=== PATIENT | male | born 1955 | race Caucasian/White ===

== ENCOUNTER 2016-10-06 19:45 | Emergency (ER) | payer BC ==
--- NOTE | 2016-10-06 19:57 | EDM.PDOC ---
ED HPI GENERAL MEDICAL PROBLEM - General Chief Complaint: Lower Extremity Injury/Pain Stated Complaint: PAIN IN RIGHT LEG Time Seen by Provider: 10/06/16 19:56 Source of Information: Reports: Patient - History of Present Illness INITIAL COMMENTS - FREE TEXT/NARRATIVE: HISTORY AND PHYSICAL: History of present illness: Patient has had swelling edema and redness of the right lower extremity for 3 weeks does have a small lesion midshaft anterior that he states began as a bug bite that has had some drainage associated with this he is Homans positive No fever nausea vomiting chills sweats no chest pain shortness breath headache dizziness palpitation about a urine symptoms Review of systems: As per history of present illness and below otherwise all systems reviewed and negative. Past medical history: As per history of present illness and as reviewed below otherwise noncontributory. Surgical history: As per history of present illness and as reviewed below otherwise noncontributory. Social history: No reported history of drug or alcohol abuse. Family history: As per history of present illness and as reviewed below otherwise noncontributory. Physical exam: HEENT: Atraumatic, normocephalic, pupils reactive, negative for conjunctival pallor or scleral icterus, mucous membranes moist, throat clear, neck supple, nontender, trachea midline. Lungs: Clear to auscultation, breath sounds equal bilaterally, chest nontender. Heart: S1S2, regular, negative for clicks, rubs, or JVD. Abdomen: Soft, nondistended, nontender. Negative for masses or hepatosplenomegaly. Negative for costovertebral tenderness. Pelvis: Stable nontender. Genitourinary: Deferred. Rectal: Deferred. Extremities: Atraumatic, negative for cords or calf pain. Neurovascular unremarkable. Right lower extremity 3+ edema some redness open lesion anterior midshaft shaft with some drainage nontender neurovascularly intact Neuro: Awake, alert, oriented. Cranial nerves II through XII unremarkable. Cerebellum unremarkable. Motor and sensory unremarkable throughout. Exam nonfocal. Diagnostics: []Lab as below Ultrasound rule out DVT Therapeutics: []Bactrim double strength by mouth twice a day #20 no refill Impression: []Cellulitis DVT disproven Chronic history of baseline Definitive disposition and diagnosis as appropriate pending reevaluation and review of above. - Related Data Allergies Allergy/AdvReac Type Severity Reaction Status Date / Time Penicillins Allergy Cannot Verified 10/06/16 19:56 Remember Home Meds: Home Meds . [No Known Home Meds] 10/06/16 [History] Review of Systems - Review of Systems Review Of Systems: ROS reveals no pertinent complaints other than HPI. ED EXAM, GENERAL - Physical Exam Exam: See Below Course - Vital Signs Last Recorded V/S: Last Vital Signs Temp 37.0 C 10/06/16 19:57 Pulse 82 10/06/16 19:57 Resp 18 10/06/16 19:57 BP 169/86 H 10/06/16 19:57 Pulse Ox 98 10/06/16 19:57 - Orders/Labs/Meds Orders: Active Orders 24 hr Category Date Time Status Venous Doppler Lwr Ext Rt [US] Stat Exams 10/06/16 19:55 Taken CULTURE WOUND [RM] Stat Lab 10/06/16 20:30 Received Labs: Laboratory Tests 10/06/16 10/06/16 10/06/16 Range/Units 20:13 20:13 20:13 WBC 3.52 L (4.0-11.0) K/uL RBC 3.84 L (4.50-5.90) M/uL Hgb 13.8 (13.0-17.0) g/dL Hct 40.9 (38.0-50.0) % MCV 106.5 H (80.0-98.0) fL MCH 35.9 H (27.0-32.0) pg MCHC 33.7 (31.0-37.0) g/dL RDW Std Deviation 53.2 (28.0-62.0) fl RDW Coeff of Asaf 14 (11.0-15.0) % Plt Count 52 L (150-400) K/uL MPV 11.60 (7.40-12.00) fL Neut % (Auto) 56.5 (48.0-80.0) % Lymph % (Auto) 30.4 (16.0-40.0) % [place] % (Auto) 10.5 (0.0-15.0) % Eos % (Auto) 2.3 (0.0-7.0) % Baso % (Auto) 0.3 (0.0-1.5) % Neut # (Auto) 2.0 (1.4-5.7) K/uL Lymph # (Auto) 1.1 (0.6-2.4) K/uL [place] # (Auto) 0.4 (0.0-0.8) K/uL Eos # (Auto) 0.1 (0.0-0.7) K/uL Baso # (Auto) 0.0 (0.0-0.1) K/uL Nucleated RBC % 0.0 /100WBC Nucleated RBCs # 0 K/uL INR 1.17 H (0.86-1.11) APTT (18.6-31.3) SEC Sodium 138 (136-146) mmol/L Potassium 4.3 (3.5-5.1) mmol/L Chloride 108 (98-110) mmol/L Carbon Dioxide 24 (21-31) mmol/L BUN 13 (6.0-23.0) mg/dL Creatinine 0.7 (0.6-1.5) mg/dL Est Cr Clr Drug Dosing TNP Estimated GFR (MDRD) > 60.0 ml/min Glucose 95 (60-110) mg/dL Calcium 8.9 (8.8-10.8) mg/dL Total Bilirubin 1.2 (0.1-1.5) mg/dL AST 62 H (5-40) IU/L ALT 60 H (8-54) IU/L Alkaline Phosphatase 152 H (40-150) Total Protein 7.6 (6.0-8.0) g/dL Albumin 3.3 L (3.4-4.8) g/dL Globulin 4.3 H (2.0-3.5) g/dL Albumin/Globulin Ratio 0.8 L (1.3-2.8) Urine Color Urine Appearance Urine pH (5.0-8.0) Ur Specific [place] (1.001-1.035) Urine Protein (NEGATIVE) mg/dL Urine Glucose (UA) (NEGATIVE) mg/dL Urine Ketones (NEGATIVE) mg/dL Urine Occult Blood (NEGATIVE) Urine Nitrite (NEGATIVE) Urine Bilirubin (NEGATIVE) Urine Urobilinogen (<2.0) EU/dL Ur Leukocyte Esterase (NEGATIVE) Urine RBC (0-2/HPF) Urine WBC (0-5/HPF) Ur Epithelial Cells (NONE-FEW) Urine Bacteria (NEGATIVE) 10/06/16 10/06/16 Range/Units 20:13 20:20 WBC (4.0-11.0) K/uL RBC (4.50-5.90) M/uL Hgb (13.0-17.0) g/dL Hct (38.0-50.0) % MCV (80.0-98.0) fL MCH (27.0-32.0) pg MCHC (31.0-37.0) g/dL RDW Std Deviation (28.0-62.0) fl RDW Coeff of Asaf (11.0-15.0) % Plt Count (150-400) K/uL MPV (7.40-12.00) fL Neut % (Auto) (48.0-80.0) % Lymph % (Auto) (16.0-40.0) % [place] % (Auto) (0.0-15.0) % Eos % (Auto) (0.0-7.0) % Baso % (Auto) (0.0-1.5) % Neut # (Auto) (1.4-5.7) K/uL Lymph # (Auto) (0.6-2.4) K/uL [place] # (Auto) (0.0-0.8) K/uL Eos # (Auto) (0.0-0.7) K/uL Baso # (Auto) (0.0-0.1) K/uL Nucleated RBC % /100WBC Nucleated RBCs # K/uL INR (0.86-1.11) APTT 27.7 (18.6-31.3) SEC Sodium (136-146) mmol/L Potassium (3.5-5.1) mmol/L Chloride (98-110) mmol/L Carbon Dioxide (21-31) mmol/L BUN (6.0-23.0) mg/dL Creatinine (0.6-1.5) mg/dL Est Cr Clr Drug Dosing Estimated GFR (MDRD) ml/min Glucose (60-110) mg/dL Calcium (8.8-10.8) mg/dL Total Bilirubin (0.1-1.5) mg/dL AST (5-40) IU/L ALT (8-54) IU/L Alkaline Phosphatase (40-150) Total Protein (6.0-8.0) g/dL Albumin (3.4-4.8) g/dL Globulin (2.0-3.5) g/dL Albumin/Globulin Ratio (1.3-2.8) Urine Color YELLOW Urine Appearance CLEAR Urine pH 6.5 (5.0-8.0) Ur Specific [place] 1.015 (1.001-1.035) Urine Protein NEGATIVE (NEGATIVE) mg/dL Urine Glucose (UA) NEGATIVE (NEGATIVE) mg/dL Urine Ketones NEGATIVE (NEGATIVE) mg/dL Urine Occult Blood TRACE-INTACT (NEGATIVE) Urine Nitrite NEGATIVE (NEGATIVE) Urine Bilirubin NEGATIVE (NEGATIVE) Urine Urobilinogen 1.0 (<2.0) EU/dL Ur Leukocyte Esterase NEGATIVE (NEGATIVE) Urine RBC 0-3 (0-2/HPF) Urine WBC 0-1 (0-5/HPF) Ur Epithelial Cells RARE (NONE-FEW) Urine Bacteria RARE (NEGATIVE) Departure - Departure Time of Disposition: 21:40 Disposition: Home, Self-Care 01 Condition: Good Clinical Impression: Cellulitis - Discharge Information Forms: ED Department Discharge Additional Instructions: Medication as prescribed Return if symptoms persist or worsen Follow-up with primary care in 2 weeks sooner as needed Return if fever nausea vomiting chills sweats despite antibiotics [facility] - Primary Care [address] [place] [address] The following information is given to patients seen in the emergency department who are being discharged to home. This information is to outline your options for follow-up care. We provide all patients seen in our emergency department with a follow-up referral. The need for follow-up, as well as the timing and circumstances, are variable depending upon the specifics of your emergency department visit. If you don't have a primary care physician on staff, we will provide you with a referral. We always advise you to contact your personal physician following an emergency department visit to inform them of the circumstance of the visit and for follow-up with them and/or the need for any referrals to a consulting specialist. The emergency department will also refer you to a specialist when appropriate. This referral assures that you have the opportunity for follow-up care with a specialist. All of these measure are taken in an effort to provide you with optimal care, which includes your follow-up. Under all circumstances we always encourage you to contact your private physician who remains a resource for coordinating your care. When calling for follow-up care, please make the office aware that this follow-up is from your recent emergency room visit. If for any reason you are refused follow-up, please contact the [facility] emergency department at and asked to speak to the emergency department charge nurse. - My Orders Last 24 Hours: My Active Orders 10/06/16 19:55 Venous Doppler Lwr Ext Rt [US] Stat 10/06/16 20:30 CULTURE WOUND [RM] Stat - Assessment/Plan Last 24 Hours: My Active Orders 10/06/16 19:55 Venous Doppler Lwr Ext Rt [US] Stat 10/06/16 20:30 CULTURE WOUND [RM] Stat
[2016-10-06 20:42] LABS: CHLORIDE,CL 108 mmol/L (98-110); SODIUM,NA 138 mmol/L (136-146)
[2016-10-06] MEDS ORDERED: Sulfamethoxazole/Trimethoprim 800-160 MG Tab PO ONE (21:43)
[2016-10-07 04:31] VITALS: BP 147/77
--- NOTE | 2016-10-07 16:22 | US ---
EXAM DATE: 10/06/16 PATIENT'S AGE: 61 Patient: JERRELL RANKIN Facility: [place], [place] Site . Site : [id number] Study: US Extremity Right [id number]/[id number] 9:30:33 PM Ordering Physician: Richie Molina Final Report: INDICATION: lower leg redness, pain and swelling x 3wks TECHNIQUE: Ultrasound venous duplex lower right extremity. Compression venous exam was performed using delgadillo-scale, color Doppler, and spectral Doppler imaging. COMPARISON: None. FINDINGS: Sonographic imaging demonstrates the right common femoral, deep femoral, superficial femoral, popliteal, posterior tibial and greater saphenous and the contralateral left common femoral veins to be fully compressible with normal color Doppler blood flow. IMPRESSION: Normal right lower extremity venous ultrasound, no sign of deep venous thrombosis. Dictated by: Dominick Lewis MD @ 10/06/2016 21:37:23 (Electronic Signature) Report Signed by Proxy. CHELY
== END 2016-10-06 22:07 | disposition home or self-care (01) ==
LOC: MW.ED 19:45
DX: L03.115 Cellulitis of right lower limb (principal); Z88.0 Allergy status to penicillin
CPT/HCPCS: 36415; 80053; 81001; 85025; 85610; 85730; 87070; 93971; 99284; A9270; 87077; 87186; 99282

== ENCOUNTER 2018-06-26 18:10 | Emergency (ER) | payer BC ==
[2018-06-26] MEDS ORDERED: Sodium Chloride 0.9% 2.5 ML Syringe FLUSH PRN (18:26)
[2018-06-26] MEDS ORDERED: Sodium Chloride 0.9% 10 ML Syringe FLUSH PRN (18:26)
[2018-06-26] MEDS ORDERED: Sodium Chloride 0.9% 1,000 ML IV ONE (18:26)
[2018-06-26] MEDS ORDERED: Ondansetron 4 MG/2 ML SDV IVPUSH ONE (18:26)
--- NOTE | 2018-06-26 18:36 | EDM.PDOC ---
<Gavi Tan - Last Filed: 06/26/18 18:50> ED HPI GENERAL MEDICAL PROBLEM - General Chief Complaint: Gastrointestinal Problem Stated Complaint: VOMITING X 2 DAYS, WEAK,LETHARGIC Time Seen by Provider: 06/26/18 18:25 Source of Information: Reports: Patient History Limitations: Reports: No Limitations - History of Present Illness INITIAL COMMENTS - FREE TEXT/NARRATIVE: History of present illness: []Patient started feeling ill 2 days ago with one episode of vomiting and has been continuing to have dry heaves. He is unable to tolerate fluids due to nausea and is now complaining of diffuse abdominal pain. He is not passing flatus and has not had a bowel movement since the symptoms began. Patient has not had any previous abdominal surgeries and has a history of abnormal liver function tests. Review of systems: As per history of present illness and below otherwise all systems reviewed and negative. Past medical history: As per history of present illness and as reviewed below otherwise noncontributory. Surgical history: As per history of present illness and as reviewed below otherwise noncontributory. Social history: No reported history of drug or alcohol abuse. Family history: As per history of present illness and as reviewed below otherwise noncontributory. Physical exam: General: Well developed, well nourished in NAD HEENT: Atraumatic, normocephalic, pupils reactive, negative for conjunctival pallor or scleral icterus, mucous membranes moist, throat clear, neck supple, nontender, trachea midline. Lungs: Clear to auscultation, breath sounds equal bilaterally, chest nontender. Heart: S1S2, regular, negative for clicks, rubs, or JVD. Abdomen: Tympanitic bowel sounds, Soft, distended, mild tenderness without rebound or guarding. Negative for masses or hepatosplenomegaly. Negative for costovertebral tenderness. Pelvis: Stable nontender. Genitourinary: Deferred. Rectal: Deferred. Extremities: Atraumatic, negative for cords or calf pain. Neurovascular unremarkable. Neuro: Awake, alert, oriented. Cranial nerves II through XII unremarkable. Cerebellum unremarkable. Motor and sensory unremarkable throughout. Exam nonfocal. Skin:warm and dry Diagnostics: CBC, chemistry, lipase, lactic acid, UA, CT abdomen and pelvis Therapeutics: IV hydration, Zofran ED Course: Impression: Prescriptions: Plan: Definitive disposition and diagnosis as appropriate pending reevaluation and review of above. - Related Data Allergies Allergy/AdvReac Type Severity Reaction Status Date / Time Penicillins Allergy Cannot Verified 06/26/18 18:21 Remember Home Meds: Home Meds . [No Known Home Meds] 10/06/16 [History] Past Medical History - Past Health History Medical/Surgical History: Denies Medical/Surgical History - Infectious Disease History Infectious Disease History: Reports: Chicken Pox, Measles, Mumps - Past Surgical History HEENT Surgical History: Reports: Naso-Sinus Surgery, Other (See Below) Social & Family History - Family History Family Medical History: Noncontributory - Tobacco Use Smoking Status *Q: Never Smoker - Caffeine Use Caffeine Use: Reports: Coffee - Recreational Drug Use Recreational Drug Use: No ED ROS GENERAL - Review of Systems Review Of Systems: ROS reveals no pertinent complaints other than HPI. ED EXAM, GI/ABD - Physical Exam Exam: See Below (The history of present illness) Course - Vital Signs Last Recorded V/S: Last Vital Signs Temp 36.7 C 06/26/18 18:21 Pulse 74 06/26/18 19:59 Resp 18 06/26/18 19:59 BP 116/54 L 06/26/18 19:59 Pulse Ox 94 L 06/26/18 19:59 - Orders/Labs/Meds Orders: Active Orders 24 hr Category Date Time Status Notify Provider Consults [RC] ASDIRECTED Care 06/26/18 20:34 Active Consult to Physician [CONS] Stat Cons 06/26/18 20:34 Active CULTURE URINE [RM] Stat Lab 06/26/18 19:20 Ordered Ertapenem [INVanz] 1 gm Med 06/26/18 21:07 Ordered Sodium Chloride 0.9% [Normal Saline] 50 ml IV ONETIME Lactated Ringers [Ringers, Lactated] 1,000 ml Med 06/26/18 20:45 Active IV ASDIRECTED Sodium Chloride 0.9% [Saline Flush] Med 06/26/18 18:26 Active 10 ml FLUSH ASDIRECTED PRN Sodium Chloride 0.9% [Saline Flush] Med 06/26/18 18:26 Active 2.5 ml FLUSH ASDIRECTED PRN Nasogastric Orogastric Tube Insertion [OM.PC] Stat Oth 06/26/18 21:06 Ordered Saline Lock Insert [OM.PC] Stat Oth 06/26/18 18:26 Ordered Medication Orders Lactated Ringer's (Ringers, Lactated) 1,000 mls @ 150 mls/hr IV ASDIRECTED HERI Last Admin: 06/26/18 20:45 Dose: 150 mls/hr Sodium Chloride (Saline Flush) 10 ml FLUSH ASDIRECTED PRN PRN Reason: Keep Vein Open Last Admin: 06/26/18 18:32 Dose: 10 ml Sodium Chloride (Saline Flush) 2.5 ml FLUSH ASDIRECTED PRN PRN Reason: Keep Vein Open Last Admin: 06/26/18 18:31 Dose: 2.5 ml Labs: Laboratory Tests 06/26/18 06/26/18 06/26/18 Range/Units 18:27 18:36 18:36 WBC 7.55 (4.0-11.0) K/uL RBC 3.77 L (4.50-5.90) M/uL Hgb 14.0 (13.0-17.0) g/dL Hct 41.6 (38.0-50.0) % MCV 110.3 H (80.0-98.0) fL MCH 37.1 H (27.0-32.0) pg MCHC 33.7 (31.0-37.0) g/dL RDW Std Deviation 62.4 H (28.0-62.0) fl RDW Coeff of Asaf 16 H (11.0-15.0) % Plt Count 65 L (150-400) K/uL MPV 11.70 (7.40-12.00) fL Neut % (Auto) 75.3 (48.0-80.0) % Lymph % (Auto) 13.4 L (16.0-40.0) % [place] % (Auto) 10.5 (0.0-15.0) % Eos % (Auto) 0.7 (0.0-7.0) % Baso % (Auto) 0.1 (0.0-1.5) % Neut # (Auto) 5.7 (1.4-5.7) K/uL Lymph # (Auto) 1.0 (0.6-2.4) K/uL [place] # (Auto) 0.8 (0.0-0.8) K/uL Eos # (Auto) 0.1 (0.0-0.7) K/uL Baso # (Auto) 0.0 (0.0-0.1) K/uL Nucleated RBC % 0.0 /100WBC Nucleated RBCs # 0 K/uL Lactate 1.9 (0.20-2.00) mmol/L Sodium (136-148) mmol/L Potassium (3.5-5.1) mmol/L Chloride (98-107) mmol/L Carbon Dioxide (21.0-32.0) mmol/L BUN (7.0-18.0) mg/dL Creatinine (0.8-1.3) mg/dL Est Cr Clr Drug Dosing mL/min Estimated GFR (MDRD) ml/min Glucose (74-106) mg/dL Calcium (8.5-10.1) mg/dL Total Bilirubin (0.2-1.0) mg/dL AST (15-37) IU/L ALT (14-63) IU/L Alkaline Phosphatase (46-116) U/L Total Protein (6.4-8.2) g/dL Albumin (3.4-5.0) g/dL Globulin (2.6-4.0) g/dL Albumin/Globulin Ratio (0.9-1.6) Lipase (73-393) U/L Urine Color ORANGE Urine Appearance HAZY Urine pH 5.5 (5.0-8.0) Ur Specific [place] 1.025 (1.001-1.035) Urine Protein TRACE H (NEGATIVE) mg/dL Urine Glucose (UA) NEGATIVE (NEGATIVE) mg/dL Urine Ketones NEGATIVE (NEGATIVE) mg/dL Urine Occult Blood MODERATE H (NEGATIVE) Urine Nitrite POSITIVE H (NEGATIVE) Urine Bilirubin MODERATE H (NEGATIVE) Urine Ictotest POSITIVE Urine Urobilinogen 2.0 H (<2.0) EU/dL Ur Leukocyte Esterase NEGATIVE (NEGATIVE) Urine RBC 0-3 (0-2/HPF) Urine WBC 0-4 (0-5/HPF) Ur Epithelial Cells OCCASIONAL (NONE-FEW) Amorphous Sediment MODERATE (NEGATIVE) Urine Bacteria FEW (NEGATIVE) Urine Mucus LIGHT (NONE-MOD) 06/26/18 06/26/18 Range/Units 18:36 20:58 WBC (4.0-11.0) K/uL RBC (4.50-5.90) M/uL Hgb (13.0-17.0) g/dL Hct (38.0-50.0) % MCV (80.0-98.0) fL MCH (27.0-32.0) pg MCHC (31.0-37.0) g/dL RDW Std Deviation (28.0-62.0) fl RDW Coeff of Asaf (11.0-15.0) % Plt Count (150-400) K/uL MPV (7.40-12.00) fL Neut % (Auto) (48.0-80.0) % Lymph % (Auto) (16.0-40.0) % [place] % (Auto) (0.0-15.0) % Eos % (Auto) (0.0-7.0) % Baso % (Auto) (0.0-1.5) % Neut # (Auto) (1.4-5.7) K/uL Lymph # (Auto) (0.6-2.4) K/uL [place] # (Auto) (0.0-0.8) K/uL Eos # (Auto) (0.0-0.7) K/uL Baso # (Auto) (0.0-0.1) K/uL Nucleated RBC % /100WBC Nucleated RBCs # K/uL Lactate 1.6 (0.20-2.00) mmol/L Sodium 134 L (136-148) mmol/L Potassium 3.8 (3.5-5.1) mmol/L Chloride 100 (98-107) mmol/L Carbon Dioxide 24.7 (21.0-32.0) mmol/L BUN 15 (7.0-18.0) mg/dL Creatinine 0.8 (0.8-1.3) mg/dL Est Cr Clr Drug Dosing 91.44 mL/min Estimated GFR (MDRD) > 60.0 ml/min Glucose 121 H (74-106) mg/dL Calcium 8.9 (8.5-10.1) mg/dL Total Bilirubin 2.9 H (0.2-1.0) mg/dL AST 63 H (15-37) IU/L ALT 48 (14-63) IU/L Alkaline Phosphatase 116 (46-116) U/L Total Protein 9.0 H (6.4-8.2) g/dL Albumin 2.6 L (3.4-5.0) g/dL Globulin 6.4 H (2.6-4.0) g/dL Albumin/Globulin Ratio 0.4 L (0.9-1.6) Lipase 116 (73-393) U/L Urine Color Urine Appearance Urine pH (5.0-8.0) Ur Specific [place] (1.001-1.035) Urine Protein (NEGATIVE) mg/dL Urine Glucose (UA) (NEGATIVE) mg/dL Urine Ketones (NEGATIVE) mg/dL Urine Occult Blood (NEGATIVE) Urine Nitrite (NEGATIVE) Urine Bilirubin (NEGATIVE) Urine Ictotest Urine Urobilinogen (<2.0) EU/dL Ur Leukocyte Esterase (NEGATIVE) Urine RBC (0-2/HPF) Urine WBC (0-5/HPF) Ur Epithelial Cells (NONE-FEW) Amorphous Sediment (NEGATIVE) Urine Bacteria (NEGATIVE) Urine Mucus (NONE-MOD) Meds: Medications Generic Name Dose Route Start Last Admin Trade Name Freq PRN Reason Stop Dose Admin Lactated Ringer's 1,000 mls @ 150 mls/hr 06/26/18 20:45 06/26/18 20:45 Ringers, Lactated IV 150 mls/hr ASDIRECTED HERI Administration Sodium Chloride 10 ml 06/26/18 18:26 06/26/18 18:32 Saline Flush FLUSH 10 ml ASDIRECTED PRN Administration Keep Vein Open Sodium Chloride 2.5 ml 06/26/18 18:26 06/26/18 18:31 Saline Flush FLUSH 2.5 ml ASDIRECTED PRN Administration Keep Vein Open Discontinued Medications Generic Name Dose Route Start Last Admin Trade Name Freq PRN Reason Stop Dose Admin Sodium Chloride 1,000 mls @ 999 mls/hr 06/26/18 18:26 06/26/18 18:31 Normal Saline IV 06/26/18 19:26 999 mls/hr .Bolus ONE Administration Iopamidol 100 ml 06/26/18 19:30 06/26/18 19:31 Isovue Multipack-370 (76%) IVPUSH 06/26/18 19:31 100 ml ONETIME ONE Administration Morphine Sulfate 4 mg 06/26/18 19:57 06/26/18 20:14 Morphine IVPUSH 06/26/18 19:58 4 mg ONETIME ONE Administration Morphine Sulfate Confirm 06/26/18 20:17 Morphine Administered 06/26/18 20:18 Dose 2 mg .ROUTE .STK-MED ONE Ondansetron HCl 4 mg 06/26/18 18:26 06/26/18 18:31 Zofran IVPUSH 06/26/18 18:27 4 mg ONETIME ONE Administration Departure - Departure Disposition: DC/Tfer to [facility] 02 Clinical Impression: Incarcerated umbilical hernia - Discharge Information Referrals: Fran Hampton MD [Primary Care Provider] - Forms: ED Department Discharge - My Orders Last 24 Hours: My Active Orders 06/26/18 19:20 CULTURE URINE [RM] Stat 06/26/18 20:34 Notify Provider Consults [RC] ASDIRECTED Consult to Physician [CONS] Stat 06/26/18 20:45 Lactated Ringers [Ringers, Lactated] 1,000 ml IV ASDIRECTED 06/26/18 21:06 Nasogastric Orogastric Tube Insertion [OM.PC] Stat 06/26/18 21:07 Ertapenem [INVanz] 1 gm Sodium Chloride 0.9% [Normal Saline] 50 ml IV ONETIME - Assessment/Plan Last 24 Hours: My Active Orders 06/26/18 19:20 CULTURE URINE [RM] Stat 06/26/18 20:34 Notify Provider Consults [RC] ASDIRECTED Consult to Physician [CONS] Stat 06/26/18 20:45 Lactated Ringers [Ringers, Lactated] 1,000 ml IV ASDIRECTED 06/26/18 21:06 Nasogastric Orogastric Tube Insertion [OM.PC] Stat 06/26/18 21:07 Ertapenem [INVanz] 1 gm Sodium Chloride 0.9% [Normal Saline] 50 ml IV ONETIME <Skylar Edmond - Last Filed: 06/26/18 21:10> ED HPI GENERAL MEDICAL PROBLEM - History of Present Illness INITIAL COMMENTS - FREE TEXT/NARRATIVE: This is Dr. Edmond dictating addendum note as I assumed care of this case at 7 PM. The case was endorsed to me to follow up the lab tests and the CAT scan. The legs reveal a bilirubin of 2.9 and the patient does say that he has a history of liver problems that have never been formally diagnosed. He does have signs of an early UTI and urine culture was added area the patient was complaining of pain so I ordered some morphine. The CT scan results have just been obtained and reveal cirrhosis of the liver with portal venous hypertension some splenomegaly and some distal esophageal varices which would explain the patient's history of liver function test abnormalities that is not new or different today and his thrombocytopenia. The patient has on the CAT scan a 7.8 x 6.1 x 6.5 cm umbilical hernia which has entrapped small bowel within it which would explain the patient's tympany abdominal distention pain and vomiting. According to the radiologist who feels this is indicative of entrapped small bowel causing a small bowel obstruction. When I speak with the patient he says that he was aware that he had an umbilical hernia and sometimes it would pop out and he pushes it back in but since Friday this area has been more swollen and hard. On physical exam the patient does have diffuse abdominal distention and tympany on percussion and on palpation there is a tangerine sized umbilical hernia which is hard and tender and is not easily reducible. The patient is just receiving the morphine so I will reevaluate after that and I will discuss this case with Dr. Mendenhall. 2017: Case was discussed with Dr. Mendenhall who feels that this patient needs high level of care due to his thrombocytopenia and undiagnosed cirrhosis and/or limited resources here from a surgical perspective. I discussed this with the patient and family at bedside and the patient absolutely will not go to [facility] and prefers to go to [place]. 2026: I discussed this case with the surgeon on-call, Dr. Lopez, at [facility] in [place] and he feels that the patient should stay here and have his surgical procedure here. He would like to talk to Dr. Mendenhall. She was notified of this and she is coming in to examine the patient and do a formal consult. I the disposition of the patient. 2102: Dr. Mendenhall has seen and evaluated the patient and has discussed this case with Dr. Lopez, please see her consult for further information. The patient has been accepted for transfer and she feels that he can go by ground ambulance due to his exam and a negative lactate. An NG tube will be placed and a dose of Invanz will be given per the accepting physician's request. The patient is aware of this care plan. Impression: Incarcerated umbilical hernia with small bowel obstruction ED ROS GENERAL - Review of Systems Review Of Systems: ROS reveals no pertinent complaints other than HPI. Departure - Departure Time of Disposition: 21:08 Condition: Good
[2018-06-26 19:12] LABS: CHLORIDE,CL 100 mmol/L (98-107); SODIUM,NA 134 mmol/L (136-148)
[2018-06-26] MEDS ORDERED: Iopamidol 755 MG/ML 500 ML Multipack Bottle IVPUSH ONE (19:30)
[2018-06-26] MEDS ORDERED: Morphine 2 MG/ML Syringe IVPUSH ONE (19:57)
--- NOTE | 2018-06-26 20:06 | CT ---
INDICATION: Abdominal pain. CT ABDOMEN AND PELVIS WITH CONTRAST TECHNIQUE: Multidetector CT imaging was performed through the abdomen and pelvis following intravenous contrast administration using 100 mL Isovue 370. Coronal and sagittal reconstructions were generated. COMPARISON: None. FINDINGS: Lower chest: Lung bases are clear. Borderline cardiac enlargement is noted. Liver: Diffusely nodular liver contour consistent with cirrhosis. No focal liver lesion identified. Enlarged portosystemic vessels are present in the upper abdomen, including distal esophageal varices. Gallbladder and bile ducts: No gallbladder wall thickening or calcified gallstones. No biliary dilation identified. Pancreas: Unremarkable. Spleen: Moderate splenomegaly measuring 18 centimeters. Adrenals: No nodules or masses. Kidneys, ureters, and urinary bladder: No renal masses or hydronephrosis. Wall prominence of the urinary bladder due to nondistention. No bladder mass or definite pathologic wall thickening. Gastrointestinal tract and abdominal wall: 7.8 x 6.1 x 6.5 centimeter umbilical hernia containing fat and a segment of small bowel. Abnormal distention of the stomach and of the proximal and mid portion of the small bowel, with collapse of the distal small bowel, consistent with small bowel obstruction. Small bowel caliber transition at the aforementioned umbilical hernia. The appendix and colon appear normal. Vascular structures: Normal for age. Peritoneum: Small amount of free fluid in the pelvis. No free air identified. Lymph nodes: No pathologically enlarged nodes identified. Reproductive organs: No pelvic masses. Bones: Spinal degenerative changes. IMPRESSION: 1. Small bowel obstruction due to entrapment of a segment of small bowel in a 7.8 x 6.1 x 6.5 centimeter umbilical hernia. 2. Small amount of ascites. 3. Cirrhosis with portal venous hypertension, splenomegaly, and distal esophageal varices. FELICIA PÉREZ MD [employer] [facility] Dictated by Mike Pérez MD @ 06/26/2018 8:05:12 PM Dictated by: Mike Pérez MD @ 06/26/2018 20:05:36 (Electronically Signed)
[2018-06-26] MEDS ORDERED: Morphine 2 MG/ML Syringe ONE (20:17)
[2018-06-26] MEDS ORDERED: Lactated Ringers 1,000 ML IV SCH (20:45)
[2018-06-26] MEDS ORDERED: Ertapenem 1 GM in Sodium Chloride 0.9% 50 ML IV ONE (21:07)
--- NOTE | 2018-06-26 21:20 | PCM.CONS ---
H&P History of Present Illness - General Date of Service: 06/26/18 Source of Information: Patient History Limitations: Reports: No Limitations - History of Present Illness Initial Comments - Free Text/Narative: Patient is a 63 year old male with a history of "liver problems", FRANCO, and OA who presents with 2 days of abdominal pain. After the onset of this he became nauseated and started vomiting. He has been unable to keep anything down. He denies syncope. His abdominal pain was diffuse. He has an unbilical hernia that has been there for a long time. He does not feel it is bigger or more painful. - Related Data Allergies/Adverse Reactions: Allergies Allergy/AdvReac Type Severity Reaction Status Date / Time Penicillins Allergy Cannot Verified 06/26/18 18:21 Remember Home Medications: Home Meds . [No Known Home Meds] 10/06/16 [History] Past Medical History - Past Health History Medical/Surgical History: Denies Medical/Surgical History - Infectious Disease History Infectious Disease History: Reports: Chicken Pox, Measles, Mumps - Past Surgical History HEENT Surgical History: Reports: Naso-Sinus Surgery, Other (See Below) Social & Family History - Family History Family Medical History: Noncontributory - Tobacco Use Smoking Status *Q: Never Smoker - Caffeine Use Caffeine Use: Reports: Coffee - Recreational Drug Use Recreational Drug Use: No H&P Review of Systems - Review of Systems: Review Of Systems: ROS reveals no pertinent complaints other than HPI. Exam - Exam Exam: See Below - Vital Signs Vital Signs: Last Vital Signs Temp 36.7 C 06/26/18 18:21 Pulse 74 06/26/18 19:59 Resp 18 06/26/18 19:59 BP 116/54 L 06/26/18 19:59 Pulse Ox 94 L 06/26/18 19:59 Weight: 137.6 kg - Exam General: Alert, Oriented HEENT: Conjunctiva Clear, Mucosa Moist & [place], Posterior Pharynx Clear. No: Scleral Icterus Neck: Trachea Midline Lungs: Normal Respiratory Effort Cardiovascular: Regular Rate GI/Abdominal Exam: Distended, Other (Incarcerated umbilical hernia). No: Guarding, Rigid, Rebound, Tender Extremities: Pedal Edema Skin: Warm, Dry, Intact - Patient Data Lab Results Last 24 hrs: Laboratory Results - last 24 hr 06/26/18 06/26/18 06/26/18 Range/Units 18:27 18:36 18:36 WBC 7.55 (4.0-11.0) K/uL RBC 3.77 L (4.50-5.90) M/uL Hgb 14.0 (13.0-17.0) g/dL Hct 41.6 (38.0-50.0) % MCV 110.3 H (80.0-98.0) fL MCH 37.1 H (27.0-32.0) pg MCHC 33.7 (31.0-37.0) g/dL RDW Std Deviation 62.4 H (28.0-62.0) fl RDW Coeff of Asaf 16 H (11.0-15.0) % Plt Count 65 L (150-400) K/uL MPV 11.70 (7.40-12.00) fL Neut % (Auto) 75.3 (48.0-80.0) % Lymph % (Auto) 13.4 L (16.0-40.0) % [place] % (Auto) 10.5 (0.0-15.0) % Eos % (Auto) 0.7 (0.0-7.0) % Baso % (Auto) 0.1 (0.0-1.5) % Neut # (Auto) 5.7 (1.4-5.7) K/uL Lymph # (Auto) 1.0 (0.6-2.4) K/uL [place] # (Auto) 0.8 (0.0-0.8) K/uL Eos # (Auto) 0.1 (0.0-0.7) K/uL Baso # (Auto) 0.0 (0.0-0.1) K/uL Nucleated RBC % 0.0 /100WBC Nucleated RBCs # 0 K/uL Lactate 1.9 (0.20-2.00) mmol/L Sodium (136-148) mmol/L Potassium (3.5-5.1) mmol/L Chloride (98-107) mmol/L Carbon Dioxide (21.0-32.0) mmol/L BUN (7.0-18.0) mg/dL Creatinine (0.8-1.3) mg/dL Est Cr Clr Drug Dosing mL/min Estimated GFR (MDRD) ml/min Glucose (74-106) mg/dL Calcium (8.5-10.1) mg/dL Total Bilirubin (0.2-1.0) mg/dL AST (15-37) IU/L ALT (14-63) IU/L Alkaline Phosphatase (46-116) U/L Total Protein (6.4-8.2) g/dL Albumin (3.4-5.0) g/dL Globulin (2.6-4.0) g/dL Albumin/Globulin Ratio (0.9-1.6) Lipase (73-393) U/L Urine Color ORANGE Urine Appearance HAZY Urine pH 5.5 (5.0-8.0) Ur Specific [place] 1.025 (1.001-1.035) Urine Protein TRACE H (NEGATIVE) mg/dL Urine Glucose (UA) NEGATIVE (NEGATIVE) mg/dL Urine Ketones NEGATIVE (NEGATIVE) mg/dL Urine Occult Blood MODERATE H (NEGATIVE) Urine Nitrite POSITIVE H (NEGATIVE) Urine Bilirubin MODERATE H (NEGATIVE) Urine Ictotest POSITIVE Urine Urobilinogen 2.0 H (<2.0) EU/dL Ur Leukocyte Esterase NEGATIVE (NEGATIVE) Urine RBC 0-3 (0-2/HPF) Urine WBC 0-4 (0-5/HPF) Ur Epithelial Cells OCCASIONAL (NONE-FEW) Amorphous Sediment MODERATE (NEGATIVE) Urine Bacteria FEW (NEGATIVE) Urine Mucus LIGHT (NONE-MOD) 06/26/18 06/26/18 Range/Units 18:36 20:58 WBC (4.0-11.0) K/uL RBC (4.50-5.90) M/uL Hgb (13.0-17.0) g/dL Hct (38.0-50.0) % MCV (80.0-98.0) fL MCH (27.0-32.0) pg MCHC (31.0-37.0) g/dL RDW Std Deviation (28.0-62.0) fl RDW Coeff of Asaf (11.0-15.0) % Plt Count (150-400) K/uL MPV (7.40-12.00) fL Neut % (Auto) (48.0-80.0) % Lymph % (Auto) (16.0-40.0) % [place] % (Auto) (0.0-15.0) % Eos % (Auto) (0.0-7.0) % Baso % (Auto) (0.0-1.5) % Neut # (Auto) (1.4-5.7) K/uL Lymph # (Auto) (0.6-2.4) K/uL [place] # (Auto) (0.0-0.8) K/uL Eos # (Auto) (0.0-0.7) K/uL Baso # (Auto) (0.0-0.1) K/uL Nucleated RBC % /100WBC Nucleated RBCs # K/uL Lactate 1.6 (0.20-2.00) mmol/L Sodium 134 L (136-148) mmol/L Potassium 3.8 (3.5-5.1) mmol/L Chloride 100 (98-107) mmol/L Carbon Dioxide 24.7 (21.0-32.0) mmol/L BUN 15 (7.0-18.0) mg/dL Creatinine 0.8 (0.8-1.3) mg/dL Est Cr Clr Drug Dosing 91.44 mL/min Estimated GFR (MDRD) > 60.0 ml/min Glucose 121 H (74-106) mg/dL Calcium 8.9 (8.5-10.1) mg/dL Total Bilirubin 2.9 H (0.2-1.0) mg/dL AST 63 H (15-37) IU/L ALT 48 (14-63) IU/L Alkaline Phosphatase 116 (46-116) U/L Total Protein 9.0 H (6.4-8.2) g/dL Albumin 2.6 L (3.4-5.0) g/dL Globulin 6.4 H (2.6-4.0) g/dL Albumin/Globulin Ratio 0.4 L (0.9-1.6) Lipase 116 (73-393) U/L Urine Color Urine Appearance Urine pH (5.0-8.0) Ur Specific [place] (1.001-1.035) Urine Protein (NEGATIVE) mg/dL Urine Glucose (UA) (NEGATIVE) mg/dL Urine Ketones (NEGATIVE) mg/dL Urine Occult Blood (NEGATIVE) Urine Nitrite (NEGATIVE) Urine Bilirubin (NEGATIVE) Urine Ictotest Urine Urobilinogen (<2.0) EU/dL Ur Leukocyte Esterase (NEGATIVE) Urine RBC (0-2/HPF) Urine WBC (0-5/HPF) Ur Epithelial Cells (NONE-FEW) Amorphous Sediment (NEGATIVE) Urine Bacteria (NEGATIVE) Urine Mucus (NONE-MOD) Result Diagrams: 06/26/18 18:36 06/26/18 18:36 Consult PN Assessment/Plan Procedures: Procedures COMPLETE CBC W/AUTO DIFF WBC (10/06/16) COMPREHEN METABOLIC PANEL (10/06/16) CULTURE OTHR SPECIMN AEROBIC (10/06/16) EMERGENCY DEPT VISIT (10/06/16) EXTREMITY STUDY (10/06/16) PROTHROMBIN TIME (10/06/16) ROUTINE VENIPUNCTURE (10/06/16) THROMBOPLASTIN TIME PARTIAL (10/06/16) URINALYSIS AUTO W/SCOPE (10/06/16) (1) Incarcerated umbilical hernia SNOMED Code(s): 430362900 Code(s): K42.0 - UMBILICAL HERNIA WITH OBSTRUCTION, WITHOUT GANGRENE Current Visit: Yes Problem List Initiated/Reviewed/Updated: Yes Plan: His vitals were stable on arrival other than him being hypertensive. He was given morphine with complete resolution of his pain. His WBC was normal. His platelets were 65. His bilirubin was 2.9. Albumin was 2.6. AST was mildly elevated. Lactate was 1.9. A CT of the abdomen pelvis showed liver cirrhosis with moderate splenomegaly, esophageal varices and abdominal ascites. He has an ~ 8cm umbilical hernia containing fat and bowel. The bowel appears distended proximal to the bowel in the hernia and decompressed distally. There is no free air. The patient has no signs of peritonitis. Given his liver cirrhosis and his thrombocytopenia, he needs to be transfered to a facility with greater resources for surgery. This appears to be causing a SBO, but he does not appear to have an acute abdomen. Will place NG and give Invanz (since PCN allergy) here prior to transfer.
[2018-06-26] MEDS ORDERED: LORazepam 2 MG/ML SDV IVPUSH ONE (21:37)
[2018-06-26 22:37] VITALS: BP 136/66
== END 2018-06-26 22:00 ==
LOC: MW.ED 18:10
DX: K42.0 Umbilical hernia with obstruction, without gangrene (principal); Z88.0 Allergy status to penicillin
CPT/HCPCS: 36415; 74177; 80053; 81001; 83605; 83690; 85025; 87086; 96361; 96365; 96375; 99285; J1335; J2060; J2270; J2405; J7040; J7050; J7120; Q9967

== ENCOUNTER 2018-12-07 09:53 | Emergency (ER) | payer BC ==
--- NOTE | 2018-12-07 10:16 | EDM.PDOC ---
ED HPI GENERAL MEDICAL PROBLEM - General Chief Complaint: Respiratory Problem Stated Complaint: POSSIBLE PNEUMONIA Time Seen by Provider: 12/07/18 09:59 Source of Information: Reports: Patient History Limitations: Reports: No Limitations - History of Present Illness INITIAL COMMENTS - FREE TEXT/NARRATIVE: HISTORY AND PHYSICAL: History of present illness: Patient is a 63-year-old male presents to the ED today with concern of shortness of breath, fatigue and cough 1 week. Patient states he's also noticed his abdomen and his lower legs have become more swollen than usual. Patient states he has a history of liver cirrhosis and is following with a specialist, Dr. Chamberlain at [facility] in [place]. Patient states that he does not quantify yet for liver transplant as his liver is still some what functioning and not severe enough to require transplant at this time. Patient denies any other health history or any other symptoms or concerns. Patient denies fever, chills, chest pain. Denies headache, neck stiff ness, change in vision, syncope, or near syncope. Denies nausea, vomiting, abdominal pain, diarrhea, constipation, or dysuria. Has not noted any blood in urine or stool. Patient has been eating and drinking appropriately. Review of systems: As per history of present illness and below otherwise all systems reviewed and negative. Past medical history: As per history of present illness and as reviewed below otherwise noncontributory. Surgical history: As per history of present illness and as reviewed below otherwise noncontributory. Social history: See social history for further information Family history: As per history of present illness and as reviewed below otherwise noncontributory. Physical exam: General: Patient is alert, oriented, and in no acute distress. Patient laying comfortably on exam table. HEENT: Atraumatic, normocephalic, pupils equal and reactive bilaterally, negative for conjunctival pallor or scleral icterus, mucous membranes moist, TMs normal bilaterally, throat clear, neck supple, nontender, trachea midline. No drooling or trismus noted. No meningeal signs. No hot potato voice noted. Lungs: Mild wheezing to bilateral lung bases, breath sounds equal bilaterally, chest nontender. Heart: S1S2, regular rate and rhythm with systolic ejection murmur best heard at the LUSB. Abdomen: Morbidly obese, soft, nondistended, nontender. Negative for masses or hepatosplenomegaly. Negative for costovertebral tenderness. 2+ pitting edema of the abdomen. Pelvis: Stable nontender. Genitourinary: Deferred. Rectal: Deferred. Skin: Intact, warm, dry. Bruising in various stages of healing over arms and axilla areas bilaterally. Extremities: Atraumatic, negative for cords or calf pain. Neurovascular unremarkable. 3+ pitting edema of bilateral lower extremities to the mid femur. Neuro: Awake, alert, oriented. Cranial nerves II through XII unremarkable. Cerebellum unremarkable. Motor and sensory unremarkable throughout. Exam nonfocal. Notes: Dr. Albarran verbally involved in patient care. Dr. Condon, hospitalist front desk attendant for [facility] in [place], consulted on patient and accepting of transfer. EMS arranged Voices understanding and is agreeable to plan of care. Denies any further questions or concerns at this time. Diagnostics: CBC, CMP, UA, EKG, troponin, chest x-ray, ammonia, PT/INR, BNP Therapeutics: Shea Ruiz Impression: Anasarca Liver cirrhosis Cardiomegaly Plan: 1. Transfer to [facility] in [place] via EMS to Dr. Condon Definitive disposition and diagnosis as appropriate pending reevaluation and review of above. Neck Pain Score (Numeric/FACES): 7 - Related Data Allergies Allergy/AdvReac Type Severity Reaction Status Date / Time Penicillins Allergy Cannot Verified 12/07/18 10:09 Remember Home Meds: Home Meds . [No Known Home Meds] 10/06/16 [History] Past Medical History - Past Health History Medical/Surgical History: Denies Medical/Surgical History - Infectious Disease History Infectious Disease History: Reports: Chicken Pox, Measles, Mumps - Past Surgical History HEENT Surgical History: Reports: Naso-Sinus Surgery, Other (See Below) Social & Family History - Family History Family Medical History: Noncontributory - Caffeine Use Caffeine Use: Reports: Coffee ED ROS GENERAL - Review of Systems Review Of Systems: ROS reveals no pertinent complaints other than HPI. ED EXAM, GENERAL - Physical Exam Exam: See Below (See dictation) Course - Vital Signs Last Recorded V/S: Last Vital Signs Temp 98.8 F 12/07/18 12:45 Pulse 84 12/07/18 12:45 Resp 18 12/07/18 12:45 BP 149/60 H 12/07/18 12:45 Pulse Ox 98 12/07/18 12:45 - Orders/Labs/Meds Orders: Active Orders 24 hr Category Date Time Status EKG Documentation Completion [RC] STAT Care 12/07/18 10:09 Active RT Aerosol Therapy [RC] ASDIRECTED Care 12/07/18 10:20 Active B-TYPE NATRIURETIC PEPTIDE,BNP [CHEM] Stat Lab 12/07/18 10:05 Received UA RFX NIKITA AND CULT IF INDIC [URIN] Stat Lab 12/07/18 10:09 Ordered Labs: Laboratory Tests 12/07/18 12/07/18 12/07/18 Range/Units 10:05 10:05 10:05 WBC 10.72 (4.0-11.0) K/uL RBC 3.01 L (4.50-5.90) M/uL Hgb 11.3 L (13.0-17.0) g/dL Hct 33.4 L (38.0-50.0) % MCV 111.0 H (80.0-98.0) fL MCH 37.5 H (27.0-32.0) pg MCHC 33.8 (31.0-37.0) g/dL RDW Std Deviation 70.7 H (28.0-62.0) fl RDW Coeff of Asaf 18 H (11.0-15.0) % Plt Count 28 L (150-400) K/uL MPV 12.50 H (7.40-12.00) fL Neut % (Auto) 85.9 H (48.0-80.0) % Lymph % (Auto) 5.5 L (16.0-40.0) % [place] % (Auto) 8.3 (0.0-15.0) % Eos % (Auto) 0.2 (0.0-7.0) % Baso % (Auto) 0.1 (0.0-1.5) % Neut # (Auto) 9.2 H (1.4-5.7) K/uL Lymph # (Auto) 0.6 (0.6-2.4) K/uL [place] # (Auto) 0.9 H (0.0-0.8) K/uL Eos # (Auto) 0.0 (0.0-0.7) K/uL Baso # (Auto) 0.0 (0.0-0.1) K/uL Nucleated RBC % 0.0 /100WBC Nucleated RBCs # 0 K/uL INR 2.98 Sodium 134 L (136-148) mmol/L Potassium 4.2 (3.5-5.1) mmol/L Chloride 103 (98-107) mmol/L Carbon Dioxide 22.4 (21.0-32.0) mmol/L BUN 14 (7.0-18.0) mg/dL Creatinine 0.8 (0.8-1.3) mg/dL Est Cr Clr Drug Dosing 97.59 mL/min Estimated GFR (MDRD) > 60.0 ml/min Glucose 98 (74-106) mg/dL Calcium 7.6 L (8.5-10.1) mg/dL Total Bilirubin 3.7 H (0.2-1.0) mg/dL AST 71 H (15-37) IU/L ALT 49 (14-63) IU/L Alkaline Phosphatase 117 H (46-116) U/L Ammonia (19-54) ug/dL Troponin I < 0.050 (0.000-0.056) ng/mL Total Protein 6.7 (6.4-8.2) g/dL Albumin 2.3 L (3.4-5.0) g/dL Globulin 4.4 H (2.6-4.0) g/dL Albumin/Globulin Ratio 0.5 L (0.9-1.6) 12/07/18 Range/Units 11:15 WBC (4.0-11.0) K/uL RBC (4.50-5.90) M/uL Hgb (13.0-17.0) g/dL Hct (38.0-50.0) % MCV (80.0-98.0) fL MCH (27.0-32.0) pg MCHC (31.0-37.0) g/dL RDW Std Deviation (28.0-62.0) fl RDW Coeff of Asaf (11.0-15.0) % Plt Count (150-400) K/uL MPV (7.40-12.00) fL Neut % (Auto) (48.0-80.0) % Lymph % (Auto) (16.0-40.0) % [place] % (Auto) (0.0-15.0) % Eos % (Auto) (0.0-7.0) % Baso % (Auto) (0.0-1.5) % Neut # (Auto) (1.4-5.7) K/uL Lymph # (Auto) (0.6-2.4) K/uL [place] # (Auto) (0.0-0.8) K/uL Eos # (Auto) (0.0-0.7) K/uL Baso # (Auto) (0.0-0.1) K/uL Nucleated RBC % /100WBC Nucleated RBCs # K/uL INR Sodium (136-148) mmol/L Potassium (3.5-5.1) mmol/L Chloride (98-107) mmol/L Carbon Dioxide (21.0-32.0) mmol/L BUN (7.0-18.0) mg/dL Creatinine (0.8-1.3) mg/dL Est Cr Clr Drug Dosing mL/min Estimated GFR (MDRD) ml/min Glucose (74-106) mg/dL Calcium (8.5-10.1) mg/dL Total Bilirubin (0.2-1.0) mg/dL AST (15-37) IU/L ALT (14-63) IU/L Alkaline Phosphatase (46-116) U/L Ammonia < 17 L (19-54) ug/dL Troponin I (0.000-0.056) ng/mL Total Protein (6.4-8.2) g/dL Albumin (3.4-5.0) g/dL Globulin (2.6-4.0) g/dL Albumin/Globulin Ratio (0.9-1.6) Meds: Medications Discontinued Medications Generic Name Dose Route Start Last Admin Trade Name Freq PRN Reason Stop Dose Admin Albuterol/Ipratropium 3 ml 12/07/18 10:20 12/07/18 10:29 Duoneb 3.0-0.5 Mg/3 Ml NEB 12/07/18 10:21 3 ml ONETIME ONE Administration Furosemide 40 mg 12/07/18 12:16 12/07/18 12:22 Lasix IVPUSH 12/07/18 12:17 40 mg NOW ONE Administration Departure - Departure Time of Disposition: 12:33 Disposition: DC/Tfer to [facility] 02 Clinical Impression: Anasarca, Cardiomegaly Liver cirrhosis Qualifiers: Hepatic cirrhosis type: unspecified hepatic cirrhosis Ascites presence: unspecified Qualified Code(s): K74.60 - Unspecified cirrhosis of liver - Discharge Information Referrals: PCP,None [Primary Care Provider] - Forms: ED Department Discharge - My Orders Last 24 Hours: My Active Orders 12/07/18 10:05 B-TYPE NATRIURETIC PEPTIDE,BNP [CHEM] Stat 12/07/18 10:09 EKG Documentation Completion [RC] STAT UA RFX NIKITA AND CULT IF INDIC [URIN] Stat 12/07/18 10:20 RT Aerosol Therapy [RC] ASDIRECTED - Assessment/Plan Last 24 Hours: My Active Orders 12/07/18 10:05 B-TYPE NATRIURETIC PEPTIDE,BNP [CHEM] Stat 12/07/18 10:09 EKG Documentation Completion [RC] STAT UA RFX NIKITA AND CULT IF INDIC [URIN] Stat 12/07/18 10:20 RT Aerosol Therapy [RC] ASDIRECTED
[2018-12-07] MEDS ORDERED: Albuterol/Ipratropium 3.0-0.5 MG/3 ML Neb Soln NEB ONE (10:20)
[2018-12-07 10:43] LABS: BLOOD UREA NITROGEN,BUN 14 mg/dL (7.0-18.0); CARBON DIOXIDE,CO2 22.4 mmol/L (21.0-32.0); CHLORIDE,CL 103 mmol/L (98-107); GLUCOSE RANDOM 98 mg/dL (74-106); POTASSIUM,K 4.2 mmol/L (3.5-5.1); SODIUM,NA 134 mmol/L (136-148)
--- NOTE | 2018-12-07 11:38 | CR ---
INDICATION: Shortness of breath. FINDINGS: A single portable chest x-ray shows a mildly enlarged cardiac silhouette. The lungs are somewhat hypoventilated and show mild bibasilar atelectasis. Sharp pleural margins. No pneumothorax. IMPRESSION: Hypoventilated lungs with mild bibasilar atelectasis. Dictated by Ernie Adkins MD @ 12/07/2018 11:36:36 AM Dictated by: Ernie Adkins MD @ 12/07/2018 11:36:50 (Electronically Signed)
[2018-12-07] MEDS ORDERED: Furosemide 40 MG/4 ML VIAL IVPUSH ONE (12:16)
[2018-12-07 12:47] VITALS: BP 149/60; PULSE 84
== END 2018-12-07 13:45 ==
LOC: MW.ED 09:53
DX: I51.7 Cardiomegaly (principal); K74.60 Unspecified cirrhosis of liver; R60.1 Generalized edema; Z88.0 Allergy status to penicillin
CPT/HCPCS: 71045; 80053; 82140; 83880; 84484; 85025; 85610; 93005; 94640; 96374; 99285; J1940; J7620-GY